=== PATIENT | male | born 2000 | race Caucasian/White ===

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

== ENCOUNTER 2018-02-28 19:10 | Emergency (ER) | payer OTHER ==
[~2018-02-28] VITALS: Ht 188 cm; Wt 84.8 kg
[2018-02-28 19:17] VITALS: Ht 188 cm; Wt 84.8 kg
[2018-02-28 19:51] LABS: PLATELET COUNT 207 x10^3mcL (130-400); RED CELL DISTRIBUTION WIDTH 13.4 % (11.5-14.5)
[2018-02-28 19:52] LABS: BASOPHIL % 0 % (0-2)
[2018-02-28 20:03] LABS: CALCIUM 8.7 mg/dL (8.5-10.1); CARBON DIOXIDE 23.6 mmol/L (21-32); CHLORIDE SERUM 102 mmol/L (98-107); CREATININE SERUM 0.8 mg/dL (0.7-1.3); GFR1 > 60 mL/min; GLUCOSE SERUM 112 mg/dL (74-106); POTASSIUM SERUM 3.3 mmol/L (3.5-5.1); SODIUM SERUM 137 mmol/L (136-145)
[2018-02-28 20:14] LABS: ALBUMIN 4.3 g/dL (3.4-5.0); ALKALINE PHOSPHATASE 83 U/L (46-116); ALT/SGPT 33 U/L (16-63); AMYLASE 77 U/L (25-115); AST/SGOT 26 U/L (15-37); BILIRUBIN TOTAL 0.3 mg/dL (0.20-1.00); CHOLESTEROL 119 mg/dL (<200); HDL CHOLESTEROL 61 mg/dL (40-60); LIPASE 58 IU/L (73-393); MAGNESIUM 1.8 mg/dL (1.8-2.4); T4(THYROXINE) 8.8 ug/dL (4.7-13.3); TOTAL PROTEIN, SERUM 7.9 g/dL (6.4-8.2)
[2018-02-28 21:37] LABS: microscopic required? NO
[2018-02-28 21:52] LABS: UA SPECIFIC GRAVITY <=1.005 (1.005-1.035); urine erythrocyte NEGATIVE (NEGATIVE)
[2018-02-28 22:03] LABS: AMPHETAMINE QUAL UR NONE DETECTED (NEG <=1000)
[2018-03-01 00:10] VITALS: BP 118/54
== END 2018-03-01 00:10 | disposition home or self-care (01) ==
LOC: ED 19:10
PROVIDERS: Emergency Medicine
DX: F22 Delusional disorders (principal); E87.6 Hypokalemia; F12.90 Cannabis use, unspecified, uncomplicated
CPT/HCPCS: 82962; 83880; G0480; J3411; J3475; J3490; Q0092